=== PATIENT | male | born 1975 | race Caucasian/White ===

== ENCOUNTER → 2020-01-20 15:52 | Outpatient (CLI) | payer BC, SELFPAY ==
[2020-01-08 06:52] VITALS: BMI 18.6
--- NOTE | 2020-01-20 15:57 | EKG12_ITS ---
Test Reason : PREOP Blood Pressure : / mmHG Vent. Rate : 078 BPM Atrial Rate : 078 BPM P-R Int : 132 ms QRS Dur : 092 ms QT Int : 350 ms P-R-T Axes : 029 086 053 degrees QTc Int : 399 ms Normal sinus rhythm Normal ECG Confirmed by JAMES CARDOZA, AIDEN ([id number]), editor trade journal SANG PURI ([id number]) on 01/22/2020 1:24:07 PM Referred By: Alex Vidales Confirmed By:AIDEN RAMIREZ MD
== END ==
LOC: CVS 15:55
PROVIDERS: Referring Provider Orthopaedic Surgery; Visit Provider Orthopaedic Surgery
DX: Z01.810 Encounter for preprocedural cardiovascular examination (principal)
CPT/HCPCS: 93005

== ENCOUNTER 2021-12-13 11:02 | Emergency (ER) | payer SELFPAY ==
[2021-12-13 11:02] VITALS: BP 148/107; PULSE 87; RESP 18; TEMP 36.2; O2SAT 98; BMI 18.4
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
--- NOTE | 2021-12-13 11:56 | EKG12_ITS ---
Test Reason : Blood Pressure : / mmHG Vent. Rate : 078 BPM Atrial Rate : 078 BPM P-R Int : 116 ms QRS Dur : 084 ms QT Int : 346 ms P-R-T Axes : 032 088 060 degrees QTc Int : 394 ms Normal sinus rhythm Normal ECG Confirmed by JEANNINE TEJEDA MD ([id number]), editor farm journal ANNE MARIE BURDICK ([id number]) on 12/14/2021 9:56:53 AM Referred By: Confirmed By:JEANNINE TEJEDA MD
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
[2021-12-13] MEDS: Morphine 4 MG/ML Syringe IV (12:07)
[2021-12-13 12:21] LABS: Absolute Lymphocyte Count 1.98 X10^3/uL (0.83-4.51); Absolute Neutrophil Count 10.3 X10^3/uL (2.0-7.7); Basophil# 0.03 X10^3/uL; Basophil% 0.2 % (0-1); Eosinophil# 0.16 X10^3/uL; Eosinophils% 1.2 % (0-5); Hematocrit 49.7 % (40-54); Hemoglobin 16.4 g/dL (13.0-16.5); Lymphocyte # 1.98 X10^3/ul (0.83-4.51); Lymphocyte % 14.6 % (19-41); Mean Corpuscular Hgb 29.8 pg (27.0-32.0); Mean Corpuscular Volume 90.4 fL (80-94); Mean Platelet Vol. 9.4 fl (6.2-12.0); Monocyte# 1.02 X10^3/uL; Monocyte% 7.5 % (0-10); NRBC Flagged by Analyzer 0 % (0-5); Neutrophil # 10.28 X10^3/uL (2.7-7.7); Neutrophil % 76.1 % (47-70); Platelet Count 264 K/mm3 (150-450); RBC Distribution Width CV 13.2 % (11.6-14.6); RBC Distribution Width SD 44.5 fl (35.1-43.9); White Blood Count 13.5 K/mm3 (4.4-11.0)
[2021-12-13 12:34] LABS: AST(SGOT) 26 U/L (15-37); Alanine Aminotransfer ALT/SGPT 31 U/L (16-61); Albumin, Serum 3.7 g/dL (3.2-5.0); Alkaline Phosphatase 59 U/L (45-117); Anion Gap 5 (5-15); BUN 14 mg/dL (7-18); BUN/Creat Ratio 15.5 RATIO (10-20); Calcium,Total 9.3 mg/dL (8.5-10.1); Chloride 107 mmol/L (98-107); Creatinine, Serum 0.91 mg/dL (0.70-1.30); EST Glomerular Filtration Rate 96 mL/min (>60); Est Glom Filt Rate - Afr Amer 116 mL/min (>60); Estimated Creatinine Clearance 82.21 ml/min; Globulin 3.6 g/dL (2.2-4.2); Glucose 103 mg/dL (74-106); Potassium 4.3 mmol/L (3.5-5.1); Protein, Total 7.3 g/dL (6.4-8.2); Sodium Level 139 mmol/L (136-145); Troponin-I HS 6 pg/mL (3.0-78.0)
[2021-12-13 13:44] LABS: Bacteria 0 SEEN /hpf (None Seen); Mucous, Urine 0 SEEN /hpf (<or=2+); Squamous Epithelial Cells - UA 0 SEEN /hpf (0-5)
[2021-12-13 14:00] LABS: Color, Urine Yellow (Yellow); Glucose, Dipstick Normal (Normal); Ketone-Dipstick 5 mg/dl (Negative); Leukocyte Esterase-Dipstick 25 /ul (Negative); Nitrite-Dipstick Negative (Negative); Occult Blood-Urine 10 /ul (Negative); Protein-Dipstick 30 mg/dl (Negative); Urine Bilirubin Dipstick Negative (Negative); Urine Clarity Sl. Cloudy (Clear); Urine Urobilinogen 1 mg/dl (Normal)
[2021-12-13 14:06] LABS: Red Blood Cells-Urine 0-5 SEEN /hpf (0-5); White Blood Cells 0-5 SEEN /hpf (0-5)
[2021-12-13 14:37] VITALS: PULSE 74; RESP 16; O2SAT 99
== END 2021-12-13 14:38 | disposition home or self-care (01) ==
PROVIDERS: Emergency Provider Emergency Medicine; PCP Family Medicine; Visit Provider Emergency Medicine
DX: S20.219A Contusion of unspecified front wall of thorax, initial encounter (principal); S00.93XA Contusion of unspecified part of head, initial encounter; V50.0XXA Driver of pick-up truck or van injured in collision with pedestrian or animal in nontraffic accident, initial encounter; Y93.89 Activity, other specified; Y99.8 Other external cause status; Y92.410 Unspecified street and highway as the place of occurrence of the external cause; F17.210 Nicotine dependence, cigarettes, uncomplicated
CPT/HCPCS: 70450; 71260; 72125; 74177; 80053; 81001; 84484; 85025; 93005; 96374; 99283; Q9967; A4216

== ENCOUNTER 2023-10-14 13:28 | Emergency (ER) | payer SELFPAY ==
[2023-10-14 13:28] VITALS: BP 146/95; RESP 94; TEMP 36.6; O2SAT 100; BMI 17.9
--- NOTE | 2023-10-14 13:42 | EKG12_ITS ---
Test Reason : CP Blood Pressure : / mmHG Vent. Rate : 091 BPM Atrial Rate : 091 BPM P-R Int : 128 ms QRS Dur : 082 ms QT Int : 322 ms P-R-T Axes : 061 087 071 degrees QTc Int : 396 ms Normal sinus rhythm Normal ECG Confirmed by ILEANA CARDOZA, JEANNINE ([id number]), story editor ANNE MARIE BURDICK ([id number]) on 10/16/2023 12:06:30 PM Referred By: YOMI/CONTRERAS Confirmed By:JEANNINE TEJEDA MD
--- NOTE | 2023-10-14 13:46 | ED.VIS.CHEST ---
HPI History of Present Illness Chief Complaint: Chest Pain Informant: patient Narrative Narrative: Patient presents with chest pain. Patient states he has had chest pain since about 6:00 this morning. But it does get a little better and worse but does not seem to go away. It is in the front of his chest. It seems to radiate to both arms. It does not go to his back. He states sometimes he feels little short of breath with it. He was nauseated once at home but he is not nauseated now and he never vomited. He was never diaphoretic or lightheaded. He states he also feels very anxious. He states he has been under a huge amount of stress recently. He just had a break-up with his significant other. He just found out yesterday that she lost the child they were with. When he talks about this he starts crying significantly. He is not suicidal or homicidal. He does not generally have a big history of anxiety but he does feel like he is very overwhelmed right now. He has not had any travel surgery immobilization or personal or family history of DVT or PE that he knows of. However, he is a smoker. He has never had diabetes or high cholesterol. His father had some heart problem that they fixed with surgery but they are not sure what age it is it sounds like he may have been in his 60s or 70s. His mother of congestive heart failure in her 70s. She had had what sounds like bypass surgery earlier. But were not sure what year. His sister who is younger than him has already had open heart surgery but he is not sure what that was for. He is not sure if it was vascular, valvular or another issue. [facility] Medical History Knee pain Home Medications hydroxyzine pamoate 25 mg capsule 50 mg (2 x 25 mg) PO TID PRN PRN Anxiety #21 CAPSULES 10/14/23 [Rx Last Taken Unknown] Allergy/AdvReac Type Severity Reaction Status Date / Time venom-honey bee Allergy unknown Verified 10/14/23 13:34 Social History Smoking Status: Current every day smoker tobacco type: cigarettes ROS ROS ED ROS Narrative A complete review of systems was performed and is negative except as documented in the history of present illness. Some specific details below. Constitutional: No recent fevers or chills. EYE: No visual changes. ENT: No difficulty swallowing. No swelling. No pain. No reflux symptoms. No history of GERD. CV: See history of present illness. Respiratory: See history of present illness. He is not feeling short of breath right at this moment though. GI: No abdominal pain. He did have some mild nausea earlier but has not had any vomiting diarrhea. No blood in stool. : No frequency dysuria or hematuria. Musculoskeletal: No recent trauma. No pains. No swelling. Skin: No rash. Nondiaphoretic. Neuro: No weakness or numbness but a couple times he has gotten tingling of his fingers and toes and even a little bit of his lips. That is not occurring now. Endocrine: No polyuria or polydipsia. EXAM Physical Exam Narrative Exam Narrative: CONSTITUTIONAL: Patient is almost shaking in bed. He is tearful. But he is very cooperative and gives a pretty good consistent story. HEENT: No notable trauma. Mucous membranes moist. EYES: No injection or icterus. NECK:No JVD. No stridor. No pain with motion. CARDIOVASCULAR: Regular rate. Regular rhythm. No notable murmur. No JVD. Peripheral pulses are normal and strong x 4. RESPIRATORY: No respiratory distress. Breathing is unlabored. No wheezes. No rhonchi. No rales. No pain with a deep breath. No chest wall tenderness. Saturations are normal at 100% on room air showing no hypoxia. GASTROINTESTINAL: Not distended. Bowel sounds are normal. No tenderness. No guarding. No rebound. No palpable mass. No bruit is heard. GENITOURINARY: No tenderness over the bladder. No CVA tenderness. MUSCULOSKELETAL: Atraumatic. No peripheral edema. No cord. No tenderness along the deep venous system. No asymmetry. No distended veins. NEUROLOGICAL: Patient is alert oriented x 3. SKIN: No noted rashes. No diaphoresis. PSYCHIATRIC: Patient does appear to be very anxious. He is shaking. He is tearful. Const Vital Signs: 10/14/23 13:28 10/14/23 14:04 Temperature 97.8 F Temperature Source Temporal Respiratory Rate 94 H Blood Pressure 146/95 H Blood Pressure Mean 112 Pulse Ox 100 Oxygen Delivery Method Room Air Room Air MDM MDM MDM Narrative Medical decision making narrative: My independent interpretation of the patient's to image single view AP chest x-ray shows no acute process. No infiltrate. No pneumothorax. Final reading is pending. The patient's CBC is normal. The patient's electrolytes are normal other than mild elevation of his glucose at 130. His troponin is negative at 5. Final reading of the patient's chest x-ray is negative. I checked with the patient. He feels much better. He is not having any chest pain now. He states he just feels so stressed. He is not suicidal or homicidal. I do not think he needs to come in. I think he is having significant anxiety. I will see if we can get him resources for follow-up. I will write for hydroxyzine. Even though we only did 1 troponin, this was done approximately 7 and half hours after the onset of symptoms that were continuous. Lab Data Attestation: I reviewed the patient's lab results. Labs: Laboratory Results - last 24 hr 10/14/23 13:35 WBC 10.6 RBC 5.29 Hgb 16.0 Hct 47.7 MCV 90.2 MCH 30.2 MCHC 33.5 RDW Std Deviation 46.6 H RDW Coeff of Ambika 14.1 Plt Count 244 MPV 9.6 Immature Gran % (Auto) 0.400 Neut % (Auto) 73.0 H Lymph % (Auto) 19.2 [place] % (Auto) 6.2 Eos % (Auto) 1.0 Baso % (Auto) 0.2 Absolute Neuts (auto) 7.7 Absolute Lymphs (auto) 2.03 Nucleated RBC % 0 Sodium 138 Potassium 3.9 Chloride 107 Carbon Dioxide 27.0 Anion Gap 4 L BUN 15 Creatinine 0.98 Estim Creat Clear Calc 74.73 Est GFR (MDRD) Af Amer 105 Est GFR (MDRD) Non-Af 87 BUN/Creatinine Ratio 15.3 Glucose 130 H Calcium 9.6 Troponin I High Sens 5 Radiography Diagnostic Testing: Clinical Impression(s) from Imaging Studies Chest X-Ray 10/14/23 14:10 IMPRESSION: No acute pulmonary process Electronically Signed: Steve Bell MD at 14:56 EST Reading Location ID and State: [facility] / [place] , Service support , EKG Initial EKG: Comments: My independent interpretation of the patient's EKG done for chest pain shows a sinus rhythm with overall rate of 91. No ventricular ectopy. No acute ST elevation or depression. He has mild peaking of the T waves in V5 and V6. MI interval, QRS duration and QTc is normal. This EKG including the peak T waves is similar to 13 December 2021. Discharge Plan Triage Chief Complaint: Chest Pain ED Provider: Jerardo Gifford Dx/Rx/DC Orders Clinical Impression: History of recent stressful life event, Panic attack, Chest pain Instructions: ED Anxiety Reaction, ED Chest Pain, Uncertain Cause Prescriptions: New hydroxyzine pamoate [hydroxyzine pamoate] 25 mg capsule 50 mg PO TID PRN PRN (Reason: Anxiety) Qty: 21 0RF Primary Care Provider: Care Physician,No Primary Referrals: Vlad Miranda MD [Non-Staff] - 3-5 Days Disposition Disposition: Home, Self Care
[2023-10-14 13:49] LABS: Absolute Lymphocyte Count 2.03 X10^3/uL (0.83-4.51); Absolute Neutrophil Count 7.7 X10^3/uL (2.0-7.7); Basophil# 0.02 X10^3/uL; Basophil% 0.2 % (0-1); Eosinophil# 0.11 X10^3/uL; Hematocrit 47.7 % (40-54); Lymphocyte # 2.03 X10^3/ul (0.83-4.51); Lymphocyte % 19.2 % (19-41); Mean Corp Hgb Conc 33.5 g/dL (32-36); Mean Corpuscular Hgb 30.2 pg (27.0-32.0); Mean Corpuscular Volume 90.2 fL (80-94); Mean Platelet Vol. 9.6 fl (6.2-12.0); Monocyte# 0.66 X10^3/uL; Monocyte% 6.2 % (0-10); NRBC Flagged by Analyzer 0 % (0-5); Neutrophil # 7.72 X10^3/uL (2.7-7.7); Platelet Count 244 K/mm3 (150-450); RBC Distribution Width CV 14.1 % (11.6-14.6); RBC Distribution Width SD 46.6 fl (35.1-43.9); Red Blood Count 5.29 M/mm3 (4.6-6.2); White Blood Count 10.6 K/mm3 (4.4-11.0)
[2023-10-14] MEDS: LORazepam 2 MG/ML Syringe 1 MG IV (14:00)
[2023-10-14] MEDS: Aspirin 81 MG TAB.CHEW 324 MG PO (14:01)
[2023-10-14 14:02] LABS: Anion Gap 4 (5-15); BUN 15 mg/dL (7-18); BUN/Creat Ratio 15.3 RATIO (10-20); Calcium,Total 9.6 mg/dL (8.5-10.1); Chloride 107 mmol/L (98-107); Creatinine, Serum 0.98 mg/dL (0.70-1.30); EST Glomerular Filtration Rate 87 mL/min (>60); Est Glom Filt Rate - Afr Amer 105 mL/min (>60); Estimated Creatinine Clearance 74.73 ml/min; Glucose 130 mg/dL (74-106); Potassium 3.9 mmol/L (3.5-5.1); Sodium Level 138 mmol/L (136-145); Troponin-I HS (w/2H Reflex) 5 pg/mL (3.0-78.0)
--- NOTE | 2023-10-14 14:10 | RAD_ITS ---
STUDY: X-RAY CHEST REASON FOR EXAM: Male, 48 years old. chest pain TECHNIQUE: 2 AP portable views COMPARISON: None. FINDINGS: EKG leads overlie the chest The lungs are clear and expanded. There is no demonstrated pleural abnormality. Normal size heart. Normal mediastinum and miracle. Normal visualized pulmonary arteries. Normal visualized aortic arch and descending thoracic aorta. Normal visualized thoracic spine. Normal visualized ribs, clavicles, and shoulders. There is no demonstrated abnormality of the visualized soft tissue structures of the upper abdomen. RAD/Chest 1 View (Portable) IMPRESSION: No acute pulmonary process Electronically Signed: Steve Bell MD at 14:56 EST ,
[2023-10-14 15:08] VITALS: BP 126/82; PULSE 82; RESP 20; O2SAT 98
[2023-10-14 15:46] LABS: Reflex Troponin-HS? (from REC) Y
== END 2023-10-14 15:16 | disposition home or self-care (01) ==
PROVIDERS: Emergency Provider Emergency Medicine; Visit Provider Emergency Medicine
DX: F41.0 Panic disorder [episodic paroxysmal anxiety] (principal); F17.210 Nicotine dependence, cigarettes, uncomplicated; Z82.49 Family history of ischemic heart disease and other diseases of the circulatory system; Z63.79 Other stressful life events affecting family and household; R07.9 Chest pain, unspecified
CPT/HCPCS: 71045; 80048; 84484; 85025; 93005; 96374; 99285; A4216

== ENCOUNTER 2024-03-26 10:28 | Emergency (ER) | payer SELFPAY ==
[2024-03-26 10:28] VITALS: BP 129/90; PULSE 88; RESP 14; TEMP 36.6; O2SAT 100; BMI 17.6
--- NOTE | 2024-03-26 10:44 | EKG12_ITS ---
Test Reason : SOB Blood Pressure : / mmHG Vent. Rate : 081 BPM Atrial Rate : 081 BPM P-R Int : 138 ms QRS Dur : 088 ms QT Int : 344 ms P-R-T Axes : 050 088 064 degrees QTc Int : 399 ms Normal sinus rhythm Normal ECG Confirmed by ILEANA CARDOZA, JEANNINE ([id number]), purchasing expeditor ANGEL ALEXANDER ([id number]) on 03/28/2024 7:09:28 AM Referred By: Confirmed By:JEANNINE TEJEDA MD
[2024-03-26] MEDS: Aspirin 81 MG TAB.CHEW 324 MG PO (10:50)
--- NOTE | 2024-03-26 10:55 | RAD_ITS ---
STUDY: X-RAY CHEST REASON FOR EXAM: Male, 48 years old. Chest pain TECHNIQUE: Single AP portable view of the chest. COMPARISON: 10/14/2023 FINDINGS: The lungs are clear and expanded. There is no demonstrated pleural abnormality. Normal size heart. Normal mediastinum and miracle. Normal visualized pulmonary arteries. Normal visualized aortic arch and descending thoracic aorta. Normal visualized thoracic spine. Normal visualized ribs, clavicles, and shoulders. There is no demonstrated abnormality of the visualized soft tissue structures of the upper abdomen. RAD/Chest 1 View (Portable) IMPRESSION: Normal x-ray examination of the chest. Electronically Signed: Steve Bell MD at 11:10 EDT ,
[2024-03-26 10:57] VITALS: BP 128/86; PULSE 78; RESP 16; O2SAT 100
--- NOTE | 2024-03-26 11:12 | ED.VIS.CHEST ---
HPI History of Present Illness Chief Complaint: Chest Pain Informant: patient Onset/Context/Timing Onset: Today Activity at onset: sudden Timing: Intermittent Quality: Positive for Pain Location: Substernal Current Severity: Gone Maximum Severity: Mild Worsened By: Nothing Relieved By: Nothing Associated Symptoms: Negative for Nausea, Vomiting, Diaphoresis, Dyspnea, Cough, Fever, Lightheadedness, Acid Reflux or Palpitations Narrative Narrative: 48-year-old male no seen past medical history. Sincerity GEN episode he passed out. It was unwitnessed. Last about 2 minutes. Denies any fall or injury fell to come in on felt himself getting lightheaded and lowered himself to the ground. Said for last couple days and intermittent chest pain he describes as tightness. Nothing particular makes it better or worse. Not specifically associated with exertion. He is a smoker. He does state there is family history of heart disease he denies ever having a stress test or heart catheterization. No history of DVT or PE. No hemoptysis. Pain is nonpleuritic. He has had no recent travel, surgery or immobilization. Prior Similar Symptoms: Yes Recent Illness/Hospitalization: No CVD Risk Factors: Positive for Smoking; Negative for Hypertension, Diabetes, Hypercholesterolemia or Family History 1' </=55 PE Risk Factors: Negative for Recent Travel/Surgery, Recent Immobilization, Prior DVT or PE, Cancer or OCP + Smoking + >/=35 TAD Risk Factors: Negative for Marfan's Syndrome [facility] Medical History Anxiety Knee pain Home Medications NK 03/26/24 [History Last Taken Unknown] Allergy/AdvReac Type Severity Reaction Status Date / Time venom-honey bee Allergy unknown Verified 03/26/24 10:29 Social History Smoking Status: Current every day smoker tobacco type: cigarettes ROS ROS ED ROS Narrative Nausea and vomiting. Intermittent chest pain. Syncope x 2. Review of Systems ROS Unobtainable: Denies due to encephalopathy Constitutional Constitutional ED: Denies chills Eyes Eyes: Reports none; Denies blurry vision ENT ENT ED: Denies ear pain Cardiovascular Cardiovascular: Reports as per HPI and chest pain; Denies palpitations or racing heartbeat Respiratory/Chest Respiratory/Chest: Denies cough or dyspnea Gastrointestinal Gastrointestinal: Denies abdominal pain Genitourinary Genitourinary ED: Denies dysuria or hematuria Musculoskeletal Musculoskeletal: Denies arthralgias, back pain, myalgias or neck pain Integumentary Denies abscess, Abrasions or rash Neurologic Neurologic: Denies headache(s) Psychiatric Psychiatric: Denies anxiety or depression Endocrine Endocrinology: Denies cold intolerance Hematologic/Lymphatic Hematologic/Lymphatic: Denies easy bleeding, easy bruising or lymphadenopathy Allergic/Immunologic Allergic/Immunologic ED: Denies mouth swelling, tongue swelling or urticaria EXAM Physical Exam Narrative Exam Narrative: Well-appearing 48-year-old male. Vital signs stable afebrile. H EENT exam unremarkable. Neck nontender no JVD. Lungs clear to auscultation bilaterally. Heart regular rhythm no murmur. Rate about 85. Chest wall and ribs nontender. No crepitance. Abdomen soft nontender. Chest. Moving all 4 extremities. Nontender no edema. Calves nontender no cords. Equal and symmetrical radial pulses. Neurologic exam unremarkable. Const Vital Signs: 03/26/24 10:28 03/26/24 10:44 03/26/24 10:56 Temperature 98 F Temperature Source Temporal Pulse Rate 88 Respiratory Rate 14 Respiratory Effort Normal Non-Labored Blood Pressure 129/90 H Blood Pressure Mean 103 Pulse Ox 100 Oxygen Delivery Method Room Air Room Air 03/26/24 10:57 03/26/24 12:28 03/26/24 14:00 Temperature Temperature Source Pulse Rate 78 78 70 Respiratory Rate 16 16 17 Respiratory Effort Blood Pressure 128/86 H 135/82 H 113/82 H Blood Pressure Mean 100 99 92 Pulse Ox 100 98 99 Oxygen Delivery Method Room Air Room Air Room Air Positive well nourished and well developed; Negative for obese, cachectic, contractures or unkempt General Appearance ED: well developed and NAD; Negative for unkempt, cachectic, contractures or pallor Nutritional Appearance: Negative for cachectic or obese HEENT Reports moist mucous membranes normocephalic and atraumatic; Negative for trauma or tenderness Eyes PERRL and EOMs intact bilaterally General Eye ED: Negative for pale conjunctiva or scleral icterus Neck no lymphadenopathy, supple and no JVD General: Negative for tenderness Chest Wall inspection of chest normal and palpation of chest normal Chest: Negative for tenderness Resp normal respiratory effort and clear to auscultation bilaterally Effort and Inspection: Negative for respiratory distress Auscultation: Negative for rales, rhonchi, wheezes or diminished lung sounds Cardio regular rate, regular rhythm, S1 normal heart sound, S2 normal heart sound and no murmurs Rate: Negative for bradycardia or tachycardic Peripheral Pulses: pulses 2+ throughout GI normal to inspection, nondistended, normoactive bowel sounds, soft to palpation, non-tender, non-distended and no masses Auscultation: Negative for hyperactive bowel sounds Back/Spine no CVA tenderness and no thoracic nor lumbar tenderness General Back: Negative for CVA tenderness Cervical Spine: Negative for cervical spine tenderness Extremity normal to inspection General Extremety ED: Negative for edema, pulses abnormal or tenderness General Extremity: Negative for edema or pulses abnormal Neuro oriented x3 and CN's II-XII intact bilaterally Sensorium / Orientation: awake, alert, oriented to person, oriented to place and oriented to time; Negative for confused, lethargic or stuporous Motor Exam: strength 5/5 throughout Psych mental status grossly normal Appearance: Negative for unkempt Attitude: No agitated Mood & Affect: Negative for depressed, anxious or tearful Skin no rashes or lesions noted and no wounds General Skin Exam: Negative for jaundice or pallor Rashes: No rashes noted Trauma: Negative for abrasion, laceration or puncture Heart Score History: Slightly/Non-Suspicious Age: >45 - <65 years Risk Factors: 1 or 2 Risk Factors Troponin: </= Normal Limit Score: 2 MDM MDM MDM Narrative Medical decision making narrative: 48-year-old male with atypical chest pain;. Normal exam. Cardiac workup. Went back to reevaluate the patient 2:53 PM. I believe the patient may have left without being discharged. I will attempt to reach him by phone. I did speak to the patient via phone. Went over his test results with him. He will follow-up with his primary care physician. History & Record Review Discussion w/independent historian: Patient Additional record(s) reviewed:: Prior inpatient record, Prior outpatient record, Prior ED visit and Prior labs Lab Data Lab results narrative: CBC normal. White count 9. H&H 16 and 47. Platelets 279. Electrolytes unremarkable gap 5. Normal BUN and creatinine of 0.9. Glucose 106. Troponin 5. Second troponin 2 hours was 4. Labs: Laboratory Results - last 24 hr 03/26/24 03/26/24 11:20 13:20 WBC 9.8 RBC 5.33 Hgb 16.0 Hct 47.3 MCV 88.7 MCH 30.0 MCHC 33.8 RDW Std Deviation 44.1 H RDW Coeff of Ambika 13.6 Plt Count 279 MPV 8.9 Immature Gran % (Auto) 0.200 Neut % (Auto) 61.4 Lymph % (Auto) 28.8 [place] % (Auto) 7.3 Eos % (Auto) 1.9 Baso % (Auto) 0.4 Absolute Neuts (auto) 6.0 Absolute Lymphs (auto) 2.83 Nucleated RBC % 0 Sodium 139 Potassium 3.6 Chloride 107 Carbon Dioxide 27.0 Anion Gap 5 BUN 15 Creatinine 0.90 Estim Creat Clear Calc 82.52 Est GFR (MDRD) Af Amer 116 Est GFR (MDRD) Non-Af 96 BUN/Creatinine Ratio 16.7 Glucose 106 Calcium 9.7 Troponin I High Sens 5 4 Radiography Chest X-Ray - ED: 1 View, Read by ED Physician, Heart, Lungs, Mediastinum, Bony Structures, No Acute Disease and Chronic Changes Diagnostic Testing: Clinical Impression(s) from Imaging Studies Chest X-Ray 03/26/24 10:55 IMPRESSION: Normal x-ray examination of the chest. Electronically Signed: Steve Bell MD at 11:10 EDT Reading Location ID and State: [facility] , Service support , Chest x-ray, portable, single view interpreted both by myself and the neurologist shows no acute abnormality. Normal cardiac silhouette. Normal mediastinum. Normal lung lundberg. No nitrates. Rhythm Strip Rhythm Strip: Sinus Rhythm Rate: 81 Ectopy: None EKG Initial EKG: Attestation: I personally reviewed and interpreted this EKG as follows: Interpretation: Sinus Rhythm and No Acute Injury Pattern Comments: Normal sinus rhythm rate 81 no acute signs of VT or ischemia. Discharge Plan Triage Chief Complaint: Chest Pain ED Provider: Joel Rosado Dx/Rx/DC Orders Clinical Impression: Chest pain Instructions: ED Chest Pain, Uncertain Cause Prescriptions: No Action NK Primary Care Provider: Care Physician,No Primary Referrals: Kassandra Dong MD [Med Staff - [employer]] - As Needed Care Physician,No Primary [Primary Care Provider] - Activity Restrictions/Additional Instructions: Follow-up with local primary care physician. Your EKG, chest x-ray and labs today were unremarkable. Disposition Disposition: Home, Self Care
[2024-03-26 11:34] LABS: Absolute Lymphocyte Count 2.83 X10^3/uL (0.83-4.51); Basophil# 0.04 X10^3/uL; Basophil% 0.4 % (0-1); Eosinophil# 0.19 X10^3/uL; Eosinophils% 1.9 % (0-5); Hematocrit 47.3 % (40-54); Lymphocyte # 2.83 X10^3/ul (0.83-4.51); Lymphocyte % 28.8 % (19-41); Mean Corp Hgb Conc 33.8 g/dL (32-36); Mean Corpuscular Volume 88.7 fL (80-94); Mean Platelet Vol. 8.9 fl (6.2-12.0); Monocyte# 0.72 X10^3/uL; Monocyte% 7.3 % (0-10); NRBC Flagged by Analyzer 0 % (0-5); Neutrophil # 6.04 X10^3/uL (2.7-7.7); Neutrophil % 61.4 % (47-70); Platelet Count 279 K/mm3 (150-450); RBC Distribution Width CV 13.6 % (11.6-14.6); RBC Distribution Width SD 44.1 fl (35.1-43.9); Red Blood Count 5.33 M/mm3 (4.6-6.2); White Blood Count 9.8 K/mm3 (4.4-11.0)
[2024-03-26 11:52] LABS: Anion Gap 5 (5-15); BUN 15 mg/dL (7-18); BUN/Creat Ratio 16.7 RATIO (10-20); Calcium,Total 9.7 mg/dL (8.5-10.1); Chloride 107 mmol/L (98-107); EST Glomerular Filtration Rate 96 mL/min (>60); Est Glom Filt Rate - Afr Amer 116 mL/min (>60); Estimated Creatinine Clearance 82.52 ml/min; Glucose 106 mg/dL (74-106); Potassium 3.6 mmol/L (3.5-5.1); Sodium Level 139 mmol/L (136-145); Troponin-I HS (w/2H Reflex) 5 pg/mL (3.0-78.0)
[2024-03-26 12:28] VITALS: BP 135/82; PULSE 78; RESP 16; O2SAT 98
--- NOTE | 2024-03-26 13:20 | ED.RN ---
pt was very agitated about what was taking so long explained to pt. about 2 hr troponin, and how he came in for chest pain, and the process.
[2024-03-26 13:30] LABS: Reflex Troponin-HS? (from REC) Y
[2024-03-26 13:53] LABS: Troponin-I HS 4 pg/mL (3.0-78.0)
[2024-03-26 14:00] VITALS: BP 113/82; PULSE 70; RESP 17; O2SAT 99
--- NOTE | 2024-03-26 15:01 | ED.RN ---
pt left with out notifying staff.
== END 2024-03-26 15:03 | disposition home or self-care (01) ==
PROVIDERS: Emergency Provider Emergency Medicine; Visit Provider Emergency Medicine
DX: R07.9 Chest pain, unspecified (principal); F17.210 Nicotine dependence, cigarettes, uncomplicated; Z82.49 Family history of ischemic heart disease and other diseases of the circulatory system
CPT/HCPCS: 71045; 80048; 84484; 85025; 93005; 99284; A4216

== ENCOUNTER 2025-01-13 11:31 | Day surgery (SDC) | payer MEDICAID, SELFPAY ==
[2025-01-13] VITALS (8 sets, daily range): BP systolic 110–160; BP diastolic 55–139; PULSE 69–101; RESP 16–22; TEMP 36.3–37.1; O2SAT 97–100; BMI 19.5
[2025-01-13] MEDS: 0.9% Normal Saline (1000mL) 1,000 ML 15 ML IV (12:22)
[2025-01-13 12:44] LABS: Hematocrit 44.9 % (40-54); Hemoglobin 15.1 g/dL (13.0-16.5); Mean Corp Hgb Conc 33.6 g/dL (32-36); Mean Corpuscular Hgb 30.1 pg (27.0-32.0); Mean Corpuscular Volume 89.4 fL (80-94); Mean Platelet Vol. 9.7 fl (6.2-12.0); Platelet Count 285 K/mm3 (150-450); RBC Distribution Width CV 13.7 % (11.6-14.6); RBC Distribution Width SD 44.8 fl (35.1-43.9); Red Blood Count 5.02 M/mm3 (4.6-6.2); White Blood Count 8.2 K/mm3 (4.4-11.0)
--- NOTE | 2025-01-13 12:58 | PRE.ANES_ITS ---
ASA Classification* ASA Classification ASA Classification: 2 Assessment & Plan Anesthesia* Anesthesia Assessment Anesthesia Assessment: Discussed sedation and/or anesthesia options, risks, benefits, and alternatives with patient/parents/legal guardian/POA. Questions invited. The patient/parents/legal guardian/POA seems to understand and agrees to proceed with anesthesia plan. Reviewed the physical assessment, medical history, allergy history and patient home medications list prior to surgery/procedure/anesthetic and documented any changes. Performed airway and anesthesia risk assessments. Anesthesia Type Anesthesia Type: General and Block Anesthesia Focused Assessment* Temperature: 98.7 F Pulse Rate: 84 Blood Pressure: 129/87 Respiratory Rate: 16 Pulse Ox: 100 Airway Assessment Mouth opens: >3 cm Mallampati Score: II Focused Labs Anesthesia Preop lab: CBC WBC 8.2 K/mm3 (4.4-11.0) 01/13/25 12:20 01/13/25 RBC 5.02 M/mm3 (4.6-6.2) 01/13/25 12:20 01/13/25 Hgb 15.1 g/dL (13.0-16.5) 01/13/25 12:20 01/13/25 Hct 44.9 % (40-54) 01/13/25 12:20 01/13/25 Plt Count 285 K/mm3 (150-450) 01/13/25 12:20 01/13/25 CHEMISTRY Potassium 3.6 mmol/L (3.5-5.1) 03/26/24 11:20 03/26/24 Sodium 139 mmol/L (136-145) 03/26/24 11:20 03/26/24 BUN 15 mg/dL (7-18) 03/26/24 11:20 03/26/24 Creatinine 0.90 mg/dL (0.70-1.30) 03/26/24 11:20 03/26/24 Glucose 106 mg/dL (74-106) 03/26/24 11:20 03/26/24 COAG Pre-Assessment Diagnosis/Proposed Procedure Planned Operative Procedure(s): RIGHT SHOULDER ARTHROSCOPIC RTC REPAIR AND MINI OPEN BICEPS TENODESIS Anesthesia History 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 When Was Last Pacemaker Check QUESTION #4 FULL TEXT: You/Your Family Experience fever (hyperthermia) with Anesthesia Last Oral Intake Last Oral intake: Last Oral Intake NPO since 22:00 01/13/25 12:06 Meds taken in AM with sips of No 01/13/25 12:06 water? Meds patient instructed to take am of surgery PONV PONV - automobile body repair chief: PONV - automobile body repair chief Female No 01/02/25 09:15 HX of Motion Sickness No 01/02/25 09:15 HX of N/V After Surgery No 01/02/25 09:15 Non-Smoker Yes 01/02/25 09:15 Duration of Surgery greater Yes 01/02/25 09:15 than 60 minutes Number of Risk Factors 2 01/02/25 09:15 PONV Score Moderate Risk 01/02/25 09:15 Height & Weight Height & Weight: Anesthesia: Height & Weight Height 5 ft 9 in 01/13/25 12:06 Weight: 60 kg 01/13/25 12:06 Body Mass Index (BMI) 19.5 01/13/25 12:06 Respiratory Assessment Respiratory Assessment - automobile body repair chief: Respiratory Tract Infection Hx - automobile body repair chief Hx Respiratory Tract Infection No 01/02/25 09:15 STOP Sleep Apnea STOP Sleep Apnea - automobile body repair chief: STOP Sleep Apnea - automobile body repair chief Hx Hypertension No 01/02/25 09:15 Hx Sleep Apnea No 01/02/25 09:15 CPAP BIPAP Do you snore loudly (louder No 01/02/25 09:15 than talking or can be heard Do you often feel tired/ No 01/02/25 09:15 fatigued/ sleepy during daytime? Has anyone observed you stop No 01/02/25 09:15 breathing during sleep? STOP Results Negative 01/02/25 09:15 QUESTION #5 FULL TEXT : Do you snore loudly (louder than talking or can be heard through closed doors)? 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 Specify any problems Hx of Preganancy in last 3 N/A 01/02/25 09:15 Months Nurse Filling Out Transfusion DSCHRIBER 01/02/25 09:15 & Questions: Date: 01/02/25 01/02/25 09:15 Time: 09:16 01/02/25 09:15 Patient unable to answer at this time (ie. confused, unrespo /Reproduction History /Reproductive History - automobile body repair chief: /Reproductive Hx- automobile body repair chief Hx Now No 01/02/25 09:15 Gestational Age (in weeks): EDC: Hx Hx Para Hx Section SAB No 01/02/25 09:15 Active Medications Active Medications: Current Medications Generic Name Dose Route Start Last Admin Trade Name Freq PRN Reason Stop Dose Admin Sodium Chloride 1,000 mls @ 15 mls/hr 01/13/25 12:00 01/13/25 12:22 IV 01/19/25 01:19 15 mls/hr .Q48H GILLIAN Administration Protocol PFSH Medical History (Updated 01/02/25 @ 09:20 by Louisa Dey) Wears dentures Former smoker Knee pain Home Medications ?Medication ?Instructions ?Recorded ?Last Taken ?Type tramadol 50 mg tablet 50 mg PO Q12H PRN PRN pain 0 01/02/25 Unknown History Allergy/AdvReac Type Severity Reaction Status Date / Time venom-honey bee Allergy unknown Verified 01/13/25 11:48 Surgical History (Updated 01/02/25 @ 09:20 by Louisa Dey) Hx of microdiscectomy Hx of arthroscopic knee surgery Social History Smoking Status: Former smoker Review of Systems (Anesthesia) ROS Narrative System reviewed and no additional complaints, except as documented.
[2025-01-13] MEDS: Cefazolin 2 GM in Syringe IV (13:35)
[2025-01-13] MEDS: Epinephrine (1 mg/ml) 1 MG/ML VIAL (14:09)
[2025-01-13] MEDS: Bupivacaine Mpf 0.5% 30 ML VIAL (14:10)
--- NOTE | 2025-01-13 14:51 | PCM.OPRPT ---
Operative Report (Standard) Operative Information Date of Procedure: 01/13/25 Pre-Operative Diagnosis: 1. Right shoulder rotator cuff tear 2. Right shoulder long head of biceps tendinopathy Post-Operative Diagnosis: 1. Right shoulder rotator cuff tear 2. Right shoulder long head of biceps tendinopathy Surgery/Procedure Performed: 1. Right shoulder arthroscopic rotator cuff repair 2. 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 Rim Fire Priming Tool Setter: Ashley Palacio Tasks completed by airline pilot/first officer: Opening & closing, Implanting device, Hemostasis: Electrocautery and Retracting Type of Anesthesia: General/Regional RN Documented Start/Stop Times: Operation Date: 01/13/25 13:30 Case Time Into Pre-Op 01/13/25 12:03 Anesthesia Start 01/13/25 13:26 Into Room 01/13/25 13:26 Procedure Start 01/13/25 13:56 Procedure Start Time: 13:56 Procedure Stop Time: 15:00 Select all DRAINS/GRAFTS/IMPLANTS that apply: Implanted device Implanted device details: Arthrex 4.75 mm bio composite swivel lock anchor x 1, Arthrex knotless fiber tack anchor x 1 Estimated Blood Loss: 10 cc Specimen collected: No Description of surgery: Patient was identified in preoperative holding area by name, medical record number, and date of . The operative extremity was marked. All questions were answered to the patient's satisfaction. An interscalene block was administered by anesthesia prior to the procedure. Patient was then brought to the operative suite at time of his procedure. He was positioned supine a sterile operating table. General anesthesia was induced and LMA was placed. Patient was then placed in lateral decubitus position with the right side up. A beanbag was used to hold the patient in the lateral decubitus position. An axillary roll was placed. Pillows were placed beneath and between his legs to for any bony prominences. We prepped and draped the right upper extremity in normal, sterile orthopedic fashion. The operative extremity was placed in traction utilizing arthroscopic bedroom with 15 pounds of tension applied to the operative extremity throughout the arthroscopic portion of the case, approximately 45 minutes. We performed a timeout with all parties in attendance in agreement with the side, site, and operation be performed. No concerns were voiced and we elected to proceed with surgery. 2 g Ancef was administered IV prior to incision by anesthesia staff. I first established a standard posterior portal 2 fingerbreadths inferior medial to the posterior lateral border of the scapular spine. Blunt tipped trocar and arthroscopic cannula was introduced into the glenohumeral joint. Joint was inflated with normal saline with epinephrine. Arthroscope was then introduced. Diagnostic arthroscopy was commenced. Cartilage appeared pristine in the glenohumeral joint. Minimal synovitis was noted. Anterior interval portal was then established. Split tearing of the subscapularis was noted along its upper margin. This was debrided with arthroscopic shaver. Biceps tendon appeared pristine. There was fraying at the superior labrum. Probing of the biceps tendon revealed a stable anchor however instability was noted in the setting of the subscapularis tear. I elected to perform a biceps tenotomy at this time with the arthroscopic cautery at the biceps labral junction. The superior labrum was debrided. The tendon was allowed to retract into its groove. The articular sided supraspinatus appeared pristine. I then reentered the shoulder in the subacromial space. Lateral portal was established and flexible cannula placed. Extensive bursitis was noted and debrided with the arthroscopic shaver. Partial-thickness tearing approximately 50% of the supraspinatus was noted. A probe was used to probe the tear and easily fell into a full-thickness tear. The tear was debrided with maximal size after debridement measuring 8 mm in width. I proceeded with fixation placing 2 sutures. I first placed a inverted mattress fiber tape with a scorpion suture passer and a fiber link suture medial to this establishing a Omar-Ruiz type ripstop repair. The sutures were passed through the eyelet of a swivel lock anchor which was placed along the lateral margin of the greater tuberosity. Sutures were tensioned and anchor placed in standard fashion with excellent purchase. Small dogear anteriorly was noted and reduced and fixed with the knotless mechanism of our suture swivel lock anchor. The subacromial space was then thoroughly lavaged. Arthroscopic instruments were removed. Portal sites were closed in interrupted [id number] fashion with 3-0 nylon suture. The arm was taken out of traction. A 2 cm oblique incision was then made along the inferior border the pectoralis major and the upper arm. Blunt dissection was carried down the level of the fascia. Fascia was opened. The interval between the pectoralis major and short of the biceps tendon was identified and developed. Long head of biceps tendon was identified and retrieved from the wound. Extensive tenosynovitis was noted in the intertubercular portion of the biceps tendon. I proceeded with an onlay tenodesis utilizing a self locking fiber tack anchor. I drilled unit cortically in the subpectoral region of the humerus. The repair suture was placed via running, locking fashion near the musculotendinous junction of the biceps tendon. The suture was then shuttled with the knotless mechanism into the fiber tack anchor. There is excellent compression of the tendon to the anterior humeral cortex. The wound was kimi irrigated with normal saline solution. Field block was administered with 20 cc total half percent bupivacaine plain. Dermis was then reapproximated with buried 3-0 Vicryl suture and skin finally reapproximated with subcuticular 4-0 Monocryl and Dermabond. Bulky sterile compression dressing was applied. Patient was awake in the operative suite and safely extubated. He tolerated the procedure well without complication. He was transferred to his gurney and subsequently to PACU in stable condition. Need for skilled assistant in nursing: Sarah Palacio PA-C was critical to the outcome of the case. During the course of the procedure the physician assistant in nursing played a vital role. Her intimate knowledge of my steps in the procedure aided in safe and expedient completion of the procedure. The PA played a vital role in positioning particularly in obtaining the appropriate positioning. The PA was also vital in the retraction of soft tissues during the exposure and protecting vital structures. The PA was also vital and obtaining tendon reduction and assisting with hardware placement. She also played a vital role in closure and sling application with my direct supervision. Post Operative Plan: Weightbearing: Nonweightbearing right upper extremity, okay for pendulums. Range of motion of wrist elbow and hand as tolerated. Antibiotics: 2 g Ancef IV prior to incision DVT Prophylaxis: Aspirin enteric-coated 81 mg twice daily starting tomorrow Milner: None Dressing: Maintain dressing x 2 days then ok to shower X-Rays: 2 weeks postop in the office Pain Medication: Oxycodone Rx upon discharge Follow-up: 2 weeks post-operatively with me in the office Surgical Findings: Greater than 50% bursal sided tearing supraspinatus, unstable biceps tendon with tenosynovitis. Complications Complications: No Admit VTE Documentation VTE Present on Admission: No VTE Mechan Device Prophylaxis: SCD's VTE Pharm Prophylaxis ordered?: Yes
--- NOTE | 2025-01-13 15:14 | PCM.POST.ANE ---
Anesthesia: Postop Eval I Current Vital Signs Temperature: 97.4 F Pulse Rate: 100 Blood Pressure: 122/55 Respiratory Rate: 22 Pulse Ox: 97 Oxygen Delivery Method: Room Air Assessment Airway patent: Yes Spontaneous unlabored respirations: Yes Mental status: Awake and Calm nausea: No Vomiting: No Anesthesia Complication: Yes Anesthesia Complication Comment:: none Fluid Hydration Crystalloid volume administer (ml): 1,000 Total IV fluid infused: 1,000 Progress Note Anesthesia document: Postop Eval 1 completed: Yes
--- NOTE | 2025-01-13 15:23 | POSTOPAN2_ITS ---
Anesthesia Postop Eval I Sum Postop Eval Completion status Anesthesia document: Postop Eval 1 completed: Yes Anesthesia Postop Eval I Summary Anesthesia Postop Eval I Summary: Anesthesia Postop Eval I: Assessment Summary Airway patent Yes 01/13/25 15:15 [employer]ODUCTION LINE [email or web address] Spontaneous unlabored Yes 01/13/25 15:15 PRODUCTION LINE MANAGER.OS respirations Mental status Awake,Calm 01/13/25 15:15 PRODUCTION LINE [email or web address] nausea No 01/13/25 15:15 PRODUCTION LINE MANAGER.BHOS Vomiting No 01/13/25 15:15 PRODUCTION LINE MANAGER.OS Anesthesia Postop Eval I: Fluid Summary Crystalloid volume administer 1,000 01/13/25 15:15 PRODUCTION LINE [email or web address] (ml) Colloids volume administered ( ml) Blood Product volume administered (ml) Total IV fluid infused 1,000 01/13/25 15:15 PRODUCTION LINE MANAGER.OS Anesthesia Postop Eval I: Summary Notes Anesthesia Complication Yes 01/13/25 15:15 PRODUCTION LINE MANAGER.OS Anesthesia Complication none 01/13/25 15:15 PRODUCTION LINE MANAGER.OS Comment: Post-operative progress note Anesthesia: Postop Eval II Evaluation Mental status: Awake and Calm Pain Level: 0 nausea: No Vomiting: No Complications Anesthesia Complication: No
--- NOTE | 2025-01-13 15:23 | PCM.POSTANE2 ---
Anesthesia Postop Eval I Sum Postop Eval Completion status Anesthesia document: Postop Eval 1 completed: Yes Anesthesia Postop Eval I Summary Anesthesia Postop Eval I Summary: Anesthesia Postop Eval I: Assessment Summary Airway patent Yes 01/13/25 15:15 WEB PRODUCTION [email or web address] Spontaneous unlabored Yes 01/13/25 15:15 WEB PRODUCTION MANAGER.OS respirations Mental status Awake,Calm 01/13/25 15:15 WEB PRODUCTION [email or web address] nausea No 01/13/25 15:15 WEB PRODUCTION MANAGER.BHOS Vomiting No 01/13/25 15:15 WEB PRODUCTION MANAGER.OS Anesthesia Postop Eval I: Fluid Summary Crystalloid volume administer 1,000 01/13/25 15:15 WEB PRODUCTION [email or web address] (ml) Colloids volume administered ( ml) Blood Product volume administered (ml) Total IV fluid infused 1,000 01/13/25 15:15 WEB PRODUCTION MANAGER.OS Anesthesia Postop Eval I: Summary Notes Anesthesia Complication Yes 01/13/25 15:15 WEB PRODUCTION MANAGER.OS Anesthesia Complication none 01/13/25 15:15 WEB PRODUCTION MANAGER.OS Comment: Post-operative progress note Anesthesia: Postop Eval II Evaluation Mental status: Awake and Calm Pain Level: 0 nausea: No Vomiting: No Complications Anesthesia Complication: No
[2025-01-13] MEDS: Ketorolac 15 MG/ML Vial IV (16:41)
== END 2025-01-13 17:11 | disposition home or self-care (01) ==
LOC: SDC 11:32 → AC 11:34
PROVIDERS: Anesthesiology; PCP Nurse Practitioner Family; Referring Provider Student in an Organized Health Care Education/Training Program; Visit Provider Student in an Organized Health Care Education/Training Program
PROC: (CPT 29827; principal; 2025-01-13 13:10)
DX: S46.011A Strain of muscle(s) and tendon(s) of the rotator cuff of right shoulder, initial encounter (principal); M75.41 Impingement syndrome of right shoulder; S46.111A Strain of muscle, fascia and tendon of long head of biceps, right arm, initial encounter; W18.49XA Other slipping, tripping and stumbling without falling, initial encounter; Z87.891 Personal history of nicotine dependence
CPT/HCPCS: 29827; 23430; 01630; 64415; 85027; C1713; J2405